=== PATIENT | male | born 2005 | race Two or more races ===

== ENCOUNTER 2025-06-25 12:49 | Emergency (ER) | payer OTHER ==
[~2025-06-25] VITALS: Ht 170.2 cm; Wt 71.7 kg
[2025-06-25] MEDS ORDERED: KETOROLAC TROMETHAMINE 30 MG VIAL IU STA (15:11)
[2025-06-25] MEDS ORDERED: 0.9 % SODIUM CHLORIDE 500 ML IV SCH (15:15)
[2025-06-25] MEDS ORDERED: KETOROLAC TROMETHAMINE 30 MG VIAL ONE (16:04)
[2025-06-25 16:30] LABS: BASO % 0.6 % (0.1-1.2); EOS # 0.13 (0.04-0.54); EOS % 1.6 % (0.7-7.0); LYMPH # 2.81 (1.18-3.74); LYMPH % 35.1 % (19.3-53.1); MEAN PLATELET VOLUME 9.50 fl (9.4-12.4); MONO # 0.98 (0.24-0.82); NEUT # 4.01 (1.56-6.13); NEUT % 50.1 % (34.0-71.1); RED CELL DISTRIBUTION WIDTH 13.0 % (11.6-14.4)
[2025-06-25 16:35] LABS: MONO % 12.3 % (4.7-12.5)
[2025-06-25 16:59] LABS: URINE APPEARANCE Clear; URINE BILIRRUBIN Negative (NEGATIVE); URINE BLOOD Negative; URINE COLOR Yellow; URINE GLUCOSE Negative (NEGATIVE); URINE KETONE Negative (NEGATIVE); URINE LEUKOCYTE Negative; URINE NITRATE Negative; URINE PROTEIN Negative (NEGATIVE); URINE UROBILINOGEN 1.0 E.U./dl
[2025-06-25 17:00] LABS: BUN CREA RATIO 14.0 (7.0-25.0); CREATININE SERUM 0.81 mg/dL (0.70-1.30); GFR 122.76; GLUCOSE FASTING 100.0 mg/dL (65-100); OSMOLALITY SERUM 279.0 MOSM/KG (275-295)
[2025-06-25 17:16] LABS: URINE BACTERIA 3.4 uL (0.0-1933); URINE CAST 0.00 uL (0.0-1.40); URINE EPITHELIAL CELLS 1.2 uL (0.0-38.8); URINE RBC 0.7 uL (0.0-20.8); URINE WBC 1.3 uL (0.0-23.2)
== END 2025-06-25 19:42 | disposition home or self-care (01) ==
LOC: EMR PED 12:50 → ER 12:50 → EMR PED 15:10
PROVIDERS: Pediatrics
DX: S16.8XXA Other specified injury of muscle, fascia and tendon at neck level, initial encounter (principal); V49.9XXA Car occupant (driver) (passenger) injured in unspecified traffic accident, initial encounter; W22.11XA Striking against or struck by driver side automobile airbag, initial encounter; Y93.89 Activity, other specified; Y92.413 State road as the place of occurrence of the external cause; T24.112A Burn of first degree of left thigh, initial encounter; R60.9 Edema, unspecified; M79.671 Pain in right foot